=== PATIENT | female | born 1995 | race Caucasian/White ===

== ENCOUNTER → 2021-01-31 11:46 | Outpatient (BNVA) | payer OTHER, SELFPAY | PROVIDERS: Visit Provider Nurse Practitioner | DX: Z20.822 Contact with and (suspected) exposure to COVID-19 (principal) | CPT/HCPCS: 87635 ==

== ENCOUNTER 2022-11-17 18:21 | Emergency (ER) | payer OTHER, SELFPAY ==
[2022-11-17 18:30] VITALS: BP 122/76; PULSE 85; RESP 14; TEMP 36.6; O2SAT 96
--- NOTE | 2022-11-17 18:33 | W.ED.WOUNDLC ---
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 This is a workers comp injury. Last tetanus unknown. Onset (ago): hour(s) Extremity Location: Right: hand (thumb) Place: work Patient tetanus UTD: No Context: accidental Associated symptoms: Reports no associated symptoms Treatments prior to arrival: bandage Review of Systems Musc: Reports: extremity pain (R thumb) Skin/Breast: Reports: other (laceration R thumb) Neuro: Denies: numbness in extremities or sensory changes PFSH ED PFSH: Social History Smoking and tobacco status: never smoked Current gender identity: Female Physical Exam Const: COMMON NORMALS: no acute distress, average body habitus, no limitations, healthy appearing, alert and well nourished Extremity: COMMON NORMALS: full ROM and capillary refill normal GENERAL: Yes normal exam except as noted RIGHT UPPER EXTREMITY: Yes hand & digits (1.25 cm laceration to distal R thumb; fairly superficial) Right hand and digits: Yes ROM exam (normal), Yes neurovascular exam (normal), Yes tendon exam (no tendon involvement) and Yes other (no nail involvement ) Neuro: COMMON NORMALS: moves all extremities, no focal motor deficits and no sensory deficits noted SENSORIUM/ORIENTATION: Yes alert Skin: TRAUMA: laceration Procedures Laceration Laceration 1: Site: hand (thumb) Side (If applicable): right Size (cm): 1.25 Description: linear Depth: simple, single layer Local Anesthetic: lidocaine 1% (digital block) Amount of anesthesia used (mL): 1.5 Pre-repair: wound explored and irrigated extensively Skin layer closed with: nylon Size (cm): 5-0 Number of sutures: 3 Technique: simple, interrupted Course Vital Signs: Vital signs: Vital Signs Temperature 97.9 F 11/17/22 18:30 Pulse Rate 85 11/17/22 18:30 Respiratory Rate 14 11/17/22 18:30 Blood Pressure 122/76 11/17/22 18:30 Pulse Oximetry 96 11/17/22 18:30 Oxygen Delivery Me thod Room Air 11/17/22 18:30 MDM - Wound/Laceration Medical Decision Making XR negative. Wound copiously irrigated and repaired as documented. Tetanus updated. Wound care and infection precautions discussed. She will follow-up with Worker's Comp. Lab Data Radiology Impressions Finger X-Ray 11/17/22 18:39 IMPRESSION: Negative radiographs of the right thumb. Followup imaging recommended in 7-14 days if clinical concern for fracture persists. Discharge Plan Discharge Patient Disposition: Home Clinical Impression: Finger laceration Qualifiers: Encounter type: initial encounter Finger: thumb Damage to nail status: without damage Foreign body presence: without foreign body Laterality: right Qualified Code(s): S61.011A - Laceration without foreign body of right thumb without damage to nail, initial encounter Condition: Stable Prescriptions: No Action No Known Home Medications Discharge Orders: Discharge ED (Routine); Ordered 11/17/22 Ordered By: Carissa Zheng Patient Instructions: Finger Laceration (ED) Activity Restrictions/Additional Instructions: Keep wound/laceration clean with warm soap and water twice daily. Monitor for signs of infection such as redness, swelling, increased pain, or drainage. Please seek medical re-evaluation if these occur. If you received sutures today these will need to be removed (unless you were told by the provider that they are absorbable). The provider should have discussed with you the length of time until removal-7 DAYS. You may return to the emergency department for this service. 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
--- NOTE | 2022-11-17 18:39 | XRR_ITS ---
PROCEDURE INFORMATION: Exam: XR Right Finger(s) Exam date and time: 11/17/2022 6:44 PM Age: 27 years old Clinical indication: Injury or trauma; Other: Laceration; Work related; Finger; Right; Thumb; Additional info: Laceration; Thumb TECHNIQUE: Imaging protocol: Radiologic exam of the right fingers. Views: Minimum 2 views. COMPARISON: No relevant prior studies available. FINDINGS: Bones/joints: TheNo acute fracture. No dislocation. Normal bone mineralization. No joint effusion. Joint spaces are maintained. Soft tissues: No soft tissue swelling. No radiopaque foreign body. XR/XR finger RT min 2V [id number] IMPRESSION: Negative radiographs of the right thumb. Followup imaging recommended in 7-14 days if clinical concern for fracture persists.
[2022-11-17] MEDS: tetanus-dipt-pertussis 0.5 mL SDV IM (18:53)
--- NOTE | 2022-11-23 15:01 | DCPLANNER ---
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
--- NOTE | 2022-11-25 14:21 | PC.NURSE ---
3 STITCHES REMOVED FROM RIGHT THUMB PER PROVIDER CHEIKH VO.
== END 2022-11-17 20:22 | disposition home or self-care (01) ==
PROVIDERS: Emergency Provider Physician Assistant
DX: S61.011A Laceration without foreign body of right thumb without damage to nail, initial encounter (principal); W31.89XA Contact with other specified machinery, initial encounter; Y99.0 Civilian activity done for income or pay; Z23 Encounter for immunization
CPT/HCPCS: 12001; 73140; 90471; 90715; 99283

== ENCOUNTER → 2023-09-12 11:16 | Outpatient (BNVA) | payer OTHER, SELFPAY | PROVIDERS: Visit Provider Registered Nurse | DX: Z13.220 Encounter for screening for lipoid disorders (principal); Z00.00 Encounter for general adult medical examination without abnormal findings; Z13.6 Encounter for screening for cardiovascular disorders | CPT/HCPCS: 80061 ==